=== PATIENT | female | born 1960 | race Caucasian/White ===

== ENCOUNTER 2018-01-01 08:05 | Outpatient (CLI) | payer OTHER | END 2018-01-01 08:06 | disposition home or self-care (01) | LOC: BICMAMMO 08:05 | PROVIDERS: ATTEND Obstetrics & Gynecology | DX: Z12.31 Encounter for screening mammogram for malignant neoplasm of breast (principal); N64.89 Other specified disorders of breast; Z80.3 Family history of malignant neoplasm of breast | CPT/HCPCS: 77063; 77067 ==

== ENCOUNTER 2018-01-07 13:18 | Outpatient (CLI) | payer OTHER | END 2018-01-07 13:19 | disposition home or self-care (01) | LOC: BICMAMMO 13:18 | PROVIDERS: ATTEND Obstetrics & Gynecology | DX: R92.2 Inconclusive mammogram (principal); Z80.3 Family history of malignant neoplasm of breast; Z80.1 Family history of malignant neoplasm of trachea, bronchus and lung; Z80.8 Family history of malignant neoplasm of other organs or systems | CPT/HCPCS: G0279 ==

== ENCOUNTER 2019-02-05 13:44 | Outpatient (CLI) | payer OTHER ==
--- NOTE | 2019-02-05 14:49 | BD ---
DEXA DENSITOMETRY: INDICATIONS: Postmenopausal osteoporosis screening. FINDINGS: LUMBAR SPINE BMD (g/cm2) T-SCORE L1 1.029 0.4 L2 1.120 0.8 L3 1.222 1.3 L4 1.150 0.8 TOTAL 1.135 0.8 FEMORAL NECK DENSITY 0.635 -1.9 TOTAL 0.802 -1.1 IMPRESSION: 1. The bone mineral density of the lumbar spine is within the normal range. 2. The bone mineral density of the femoral neck indicates osteopenia. 3. The 10 year fracture risk for a major osteoporosis fracture is 17% and for a hip fracture is 1.2%. POS: [facility]
--- NOTE | 2019-02-05 17:00 | MMO ---
Bilateral MAMMO Bilat Screen [facility]. CLINICAL HISTORY: Patient is 58 years old and is seen for screening. The patient has the following family history of breast cancer: mother, malignant (generic), CERVICAL AND LUNG. The patient has no personal history of cancer. VIEWS: The views performed were: bilateral craniocaudal with tomosynthesis; bilateral mediolateral oblique with tomosynthesis; and bilateral exaggerated craniocaudal. FILMS COMPARED: The present examination has been compared to prior imaging studies performed at [facility] on 04/19/2015, 12/25/2016, 01/01/2018 and 01/07/2018. This study has been interpreted with the assistance of computer-aided detection. MAMMOGRAM FINDINGS: The breasts are heterogeneously dense, which could obscure a lesion on mammography. Benign calcifications are noted bilaterally. There are no suspicious masses, suspicious calcifications, or new areas of architectural distortion. IMPRESSION: THERE IS NO MAMMOGRAPHIC EVIDENCE OF MALIGNANCY. A ROUTINE FOLLOW-UP MAMMOGRAM IN 1 YEAR IS RECOMMENDED. THE RESULTS OF THIS EXAM WERE SENT TO THE PATIENT. ACR BI-RADS Category 2 - Benign finding MAMMOGRAPHY NOTE: 1. A negative mammogram report should not delay a biopsy if a dominant of clinically suspicious mass is present. 2. Approximately 10% to 15% of breast cancers are not detected by mammography. 3. Adenosis and dense breasts may obscure an underlying neoplasm. Reported by: CHARLIE MATTHEWS MD Electonically Signed: [id number]
== END 2019-02-05 13:45 | disposition home or self-care (01) ==
LOC: BICMAMMO 13:44
PROVIDERS: ATTEND Obstetrics & Gynecology
DX: Z12.31 Encounter for screening mammogram for malignant neoplasm of breast (principal); Z13.820 Encounter for screening for osteoporosis; M81.0 Age-related osteoporosis without current pathological fracture; M85.88 Other specified disorders of bone density and structure, other site; Z79.899 Other long term (current) drug therapy; Z80.3 Family history of malignant neoplasm of breast
CPT/HCPCS: 77063; 77067; 77080

== ENCOUNTER 2019-08-26 06:18 | Outpatient (CLI) | payer OTHER ==
[2019-08-27 18:05] LABS: SARS-CoV-2 MS2 Positive; SARS-CoV-2 N Gene Negative; SARS-CoV-2 S Gene Negative; SARS-CoV-2 orf1ab Negative
== END 2019-08-26 06:19 | disposition home or self-care (01) ==
LOC: LABBT 06:18
PROVIDERS: ATTEND Ophthalmology Retina Specialist
DX: Z01.812 Encounter for preprocedural laboratory examination (principal); Z11.59 Encounter for screening for other viral diseases; H33.22 Serous retinal detachment, left eye
CPT/HCPCS: 87635; U0003

== ENCOUNTER 2019-08-28 08:19 | Day surgery (SDC) | payer OTHER ==
[~2019-08-28 08:19] MED LIST: Fentanyl 100 MCG/2 ML VIAL ONE; Fluorouracil 100 MG, Enoxaparin Sodium 25 MG, EPINEPHrine 0.3 MG in Ophthalmic Irrigati... IRR SCH; Midazolam HCl 2 mg/2 ml Vial ONE
[2019-08-28] MEDS ORDERED: Phenylephrine 2.5% Ophth Soln 5 ML BOT ONE (09:34)
[2019-08-28] MEDS ORDERED: Cyclopentolate 1% Opth Drop 2 ML BOT ONE (09:34)
[2019-08-28] MEDS ORDERED: Famotidine/PF 20 mg/2ml Vial ONE (11:02)
[2019-08-28] MEDS ORDERED: Triamcinolone 40 MG/ML VIAL ONE (11:37)
[2019-08-28] MEDS ORDERED: Ondansetron PF 4 MG/2 ML Vial ONE (11:37)
[2019-08-28] MEDS ORDERED: PROPOFOL 200 MG/20 ML VIAL ONE (11:37)
[2019-08-28] MEDS ORDERED: EPHEDRINE 25 MG/5 ML SYRINGE ONE (11:37)
[2019-08-28] MEDS ORDERED: Metoclopramide HCl 10 MG/2 ML VIAL ONE (11:37)
[2019-08-28] MEDS ORDERED: Bupivacaine PF 0.75% SDV 10 ML ONE (11:37)
[2019-08-28] MEDS ORDERED: Lidocaine 4% PF 5 ML AMP ONE (11:37)
[2019-08-28] MEDS ORDERED: Tobramycin/Dexamethasone Ophth Oint 3.5 GM TUBE ONE (11:37)
[2019-08-28] MEDS ORDERED: CEFAZOLIN 1 GM VIAL ONE (11:37)
[2019-08-28] MEDS ORDERED: Lidocaine 1% PF 5 ML VIAL ONE ×2 (11:37)
--- NOTE | 2019-08-29 13:09 | OP ---
DATE OF PROCEDURE: 08/28/2019 PREOPERATIVE DIAGNOSIS: Rhegmatogenous retinal detachment, left eye. POSTOPERATIVE DIAGNOSIS: Rhegmatogenous retinal detachment, left eye. PROCEDURE PERFORMED: Pars plana vitrectomy and retinal detachment repair of left eye. ANESTHESIA: General endotracheal anesthesia. DESCRIPTION OF PROCEDURE: The patient was identified in the preoperative holding area. Appropriate informed consent for the planned surgical procedure on the left eye had been obtained. The patient was transported to the operative suite. Appropriate cardiopulmonary monitoring was established. General endotracheal anesthesia was initiated. Retrobulbar block was placed. The patient was prepped and draped in usual sterile manner for ophthalmic surgery on the left eye. Lid speculum was placed in the left eye. A 25-gauge trocar was placed in the conjunctiva and sclera supratemporally, inferotemporally, supranasally. Infusion line was placed inferotemporally. Light pipe vitreous cutter inserted into the eye. Core vitrectomy was performed. A tear was noted at the 2 o'clock position. Posterior drained retinotomy was created superior to the nerve. Complete air-fluid exchange was performed and 10 minutes being left for fluid to drain posteriorly. Laser was placed 360 degrees using Endolaser delivery device. 28% sulfur hexafluoride gas was infused into the eye. Trocars were removed and eye was noted to retain pressure well. Retrobulbar Kenalog and sequential Ancef were placed. Antibiotic ointment was placed. Eye was patched and shielded. The patient was awakened, taken to postoperative recovery unit in good condition, having suffered no immediate perioperative complications. The patient was instructed to keep patch and shield on, position left side down. Follow up in the morning with Dr. Hernandez. Job ID: [id number]
== END 2019-08-28 14:35 | disposition home or self-care (01) ==
LOC: SDC 08:19
PROVIDERS: ATTEND Ophthalmology Retina Specialist
PROC: 08T53ZZ Resection of Left Vitreous, Percutaneous Approach (ICD-10-PCS; principal; 2019-08-28)
DX: H33.012 Retinal detachment with single break, left eye (principal); Z79.899 Other long term (current) drug therapy
CPT/HCPCS: 67025; J0171; J0690; J1650; J2001; J2250; J2405; J2704; J2765; J3010; J3301; J3490; J9190; S0028

== ENCOUNTER 2020-01-16 07:41 | Outpatient (CLI) | payer OTHER ==
--- NOTE | 2020-01-16 08:27 | MMO ---
Bilateral MAMMO Bilat Screen [facility]. CLINICAL HISTORY: Patient is 59 years old and is seen for screening. The patient has the following family history of breast cancer: mother, malignant (generic), CERVICAL AND LUNG. The patient has no personal history of cancer. VIEWS: The views performed were: bilateral craniocaudal with tomosynthesis and bilateral mediolateral oblique with tomosynthesis. FILMS COMPARED: The present examination has been compared to prior imaging studies performed at [facility] on 12/25/2016, 01/01/2018, 01/07/2018 and 02/05/2019. This study has been interpreted with the assistance of computer-aided detection. MAMMOGRAM FINDINGS: The breasts are heterogeneously dense, which could obscure a lesion on mammography. There are stable benign appearing calcifications seen in both breasts. There are no suspicious masses, suspicious calcifications, or new areas of architectural distortion. IMPRESSION: THERE IS NO MAMMOGRAPHIC EVIDENCE OF MALIGNANCY. A ROUTINE FOLLOW-UP MAMMOGRAM IN 1 YEAR IS RECOMMENDED. THE RESULTS OF THIS EXAM WERE SENT TO THE PATIENT. ACR BI-RADS Category 2 - Benign finding MAMMOGRAPHY NOTE: 1. A negative mammogram report should not delay a biopsy if a dominant of clinically suspicious mass is present. 2. Approximately 10% to 15% of breast cancers are not detected by mammography. 3. Adenosis and dense breasts may obscure an underlying neoplasm. Reported by: ALONDRA CRUZ MD Electonically Signed: [id number]
== END 2020-01-16 07:42 | disposition home or self-care (01) ==
LOC: BICMAMMO 07:41
PROVIDERS: ATTEND Obstetrics & Gynecology
DX: Z12.31 Encounter for screening mammogram for malignant neoplasm of breast (principal); Z80.3 Family history of malignant neoplasm of breast
CPT/HCPCS: 77063; 77067

== ENCOUNTER 2021-05-06 08:53 | Outpatient (CLI) | payer OTHER, SELFPAY | END 2021-05-06 08:54 | disposition home or self-care (01) | LOC: BICMAMMO 08:53 | PROVIDERS: ATTEND Family Medicine | DX: Z12.31 Encounter for screening mammogram for malignant neoplasm of breast (principal); Z80.3 Family history of malignant neoplasm of breast; Z80.1 Family history of malignant neoplasm of trachea, bronchus and lung; Z80.8 Family history of malignant neoplasm of other organs or systems | CPT/HCPCS: 77063; 77067 ==